=== PATIENT | female | born 1940 | race Caucasian/White ===

== ENCOUNTER 2016-12-13 12:15 | Inpatient (IN) | payer OTHER, BC ==
[~2016-12-13] VITALS: Ht 154.9 cm; Wt 54.8 kg
[~2016-12-13 12:15] MED LIST: ACTOS45 MG PO; AMLODIPINE BESY10 MG PO; APRESOLINE25 MG PO; ATENOLOL50 MG PO; BAYER CHILDREN'81 MG PO; CALTRATE 600 +1 EAC1 PO; CALTRATE 600600 MG PO; CATAPRES0.1 MG PO; CHILD ASPIRIN81 M1 PO; CLONIDINE HCL0.3 MG PO; COLACE100 MG PO; DEXAMETHASONE2 MG PO; DEXAMETHASONE4 MG PO; DOK PLUS TABLE1 EACH PO; FEOSOL325 MG PO; FOLBIC RF TABL1 EACH PO; GLUCOPHAGE XR,500 MG PO; GLUCOPHAGE XR500 MG PO; HYDRALAZINE HCL25 MG PO; HYDROCHLOROTHIA25 MG PO; IRON18 MG PO; IRON325 M1 PO; IRON325 MG PO; LABETALOL H5 MG/1 M1 IV; LEVEMIR FL100 UNIT/1 SC; LEVOFLOXACIN500 MG PO; LEXAPRO10 MG PO; LISINOPRIL20 MG PO; METFORMIN HCL500 M1 PO; MICROZIDE12.5 M1 PO; NASONEX17 GM NS; NORVASC5 MG PO; NOVOLOG PE100 UNITS/ SC; PANTOPRAZOLE SO40 MG PO; PHENERGAN-CODE120 ML PO; POTASSIUM CHLO20 ME1 PO; PROCARDIA XL60 MG PO; SINGULAIR10 MG PO; SYNTHROID112 MCG PO; SYNTHROID75 MCG PO; TENORMIN100 MG PO; VITAMIN B-6100 MG PO; VITAMIN B-6200 MG PO; VITAMIN D10000 UNIT PO; VITAMIN D31000 UNI2 PO; ZESTRIL20 MG PO; ZETIA10 MG PO; ZOFRAN4 MG/2 ML IV; ZOLOFT50 MG PO
[2016-12-13 12:34] LABS: CREATININE 0.9 mg/dL (0.6-1.3); POTASSIUM 3.1 mEq/L (3.7-5.4)
[2016-12-13 12:41] LABS: BASOPHIL COUNT 0.1 K/uL (0-0.1); EOSINOPHIL (%) 0.7 % (0-5); EOSINOPHIL COUNT 0.1 K/uL (0-0.3); HEMATOCRIT 42.4 % (36.0-46.0); IMMATURE GRANULOCYTE (%) 2.4 % (0.0-0.7); IMMATURE GRANULOCYTE COUNT 0.5 K/uL; INSTRUMENT ABS NEUTROPHIL CT 13.2 K/uL; LYMPHOCYTE COUNT 3.9 K/uL (1.0-2.8); MCH 27.8 PG (29.0-34.0); MCHC 32.3 G/DL (30.0-36.0); MEAN PLAT.VOLUME 10.1 uM^3 (9.5-12.4); MONOCYTE (%) 5.1 % (3-12); NEUTROPHIL (%) 70.4 % (45-76); NEUTROPHIL COUNT 13.2 K/uL (1.8-6.4); PLATELET COUNT 425 K/uL (156-360); RBC DIS.WIDTH-CV 13.2 % (11.8-14.6); RBC DIS.WIDTH-SD 41.6 % (39-53); RED BLOOD COUNT 4.93 M/uL (3.80-5.20); WHITE BLOOD COUNT 18.8 K/uL (4.1-10.2)
[2016-12-13 12:50] LABS: INTER. NORMALIZED RATIO 1.1; PROTHROMBIN TIME 11.4 (9.2-11.2); PTT 25.7 (25-32)
[2016-12-13 12:51] LABS: AMYLASE 40 IU/L (1-118); CHLORIDE 100 mEq/L (99-109); POTASSIUM 3.2 mEq/L (3.7-5.4); SODIUM 139 mEq/L (136-147)
[2016-12-13 12:52] LABS: GLUCOSE 299 mg/dL (70-99)
[2016-12-13 12:54] LABS: ANION GAP 20 MEQ/L (2-14)
[2016-12-13 12:55] LABS: SERUM ETHYL ALCOHOL < 10 mg/dL
[2016-12-13 12:56] LABS: GFR ESTIMATE (CALCULATED) 46 mL/min/
[2016-12-13 12:57] LABS: UREA NITROGEN (BUN) 15 mg/dL (9-23)
[2016-12-13 12:59] LABS: LIPASE 19 U/L (1.0-51.0)
[2016-12-13 13:00] LABS: TROP-I INTERPRETATION NEGATIVE; TROPONIN-I 0.04 ng/mL (0.0-0.30)
[2016-12-13 13:25] LABS: ADD MIUA? YES; BILIRUBIN NEGATIVE; BLOOD NEGATIVE; COLOR YELLOW ((YELLOW)); GLUCOSE (STRIP) >=500; KETONES 5; LEUKOCYTES NEGATIVE; NITRITE NEGATIVE; PROTEIN (STRIP) >=500; SPECIFIC GRAVITY 1.012 (1.000-1.030); UROBILINOGEN 0.2 MG/DL (0.2-1.0)
[2016-12-13 13:31] LABS: BACTERIA NONE SEEN /HPF; EPITHELIAL CELLS NONE SEEN /HPF; MUCUS NONE SEEN /LPF; RED BLOOD CELLS 0-5 /HPF (0-5); UCUL ADDED? NO; WHITE BLOOD CELLS 0-5 /HPF (0-5)
[2016-12-13 13:34] LABS: THC CANNABINOIDS NEGATIVE (50 ng/mL)
[2016-12-13 13:35] LABS: AMPHETAMINE NEGATIVE (500 ng/mL); BARBITURATES NEGATIVE (200 ng/mL); BENZODIAZEPINES NEGATIVE (150 ng/mL); COCAINE NEGATIVE (150 ng/mL); INTERNAL CONTROLS VALID? YES; METHADONE NEGATIVE (200 ng/mL); METHAMPHETAMINE NEGATIVE (500 ng/mL); OPIATES (MORPHINE) NEGATIVE (100 ng/mL); OXYCODONE NEGATIVE (100 ng/mL); PHENCYCLIDINE NEGATIVE (25 ng/mL); PROPOXYPHENE NEGATIVE (300 ng/mL); TRICYCLIC ANTIDEPRESSANTS NEGATIVE (300 ng/mL)
[2016-12-13 15:30] VITALS: BP 157/73
[2016-12-13 15:45] VITALS: BP 152/76
[2016-12-13 16:00] VITALS: BP 162/85
[2016-12-13 16:15] VITALS: BP 171/96
[2016-12-13 16:44] LABS: METH RESISTANT S AUREUS PCR NEGATIVE (NEGATIVE)
[2016-12-13 16:49] LABS: PROBE CHECK PASS; SPECIMEN PROCESSING CONTROL PASS
[2016-12-13 18:23] LABS: POINT-OF-CARE METER ID UU13113731
[2016-12-13] MEDS ORDERED: LEVO-T100 MCG PO (18:50)
[2016-12-13] MEDS ORDERED: PROCARDIA XL60 MG PO (18:51)
[2016-12-13] MEDS ORDERED: APRESOLINE10 MG PO (18:51)
[2016-12-13] MEDS ORDERED: KLOR-CON M2020 MEQ PO (18:51)
[2016-12-13] MEDS ORDERED: METFORMIN HCL500 M1 PO (18:52)
[2016-12-13] MEDS ORDERED: IRON325 MG PO (18:52)
[2016-12-13] MEDS ORDERED: BUSPAR5 MG PO (18:52)
[2016-12-13] MEDS ORDERED: FOLBIC RF TABL1 EACH PO (18:53)
[2016-12-13] MEDS ORDERED: CATAPRES0.3 MG PO (18:53)
[2016-12-13] MEDS ORDERED: LEXAPRO20 MG PO (18:53)
[2016-12-13] MEDS ORDERED: ZETIA10 MG PO (18:53)
[2016-12-13 19:00] VITALS: BP 129/68
[2016-12-13 20:00] VITALS: BP 133/78
[2016-12-13 20:06] LABS: TROP-I INTERPRETATION NEGATIVE; TROPONIN-I 0.09 ng/mL (0.0-0.30)
[2016-12-14 00:22] LABS: POINT-OF-CARE METER ID UU13113731
[2016-12-14 03:00] VITALS: BP 203/104
[2016-12-14 04:50] LABS: HEMATOCRIT 37.5 % (36.0-46.0); MCHC 33.3 G/DL (30.0-36.0); MCV 84.1 FL (83-99); MEAN PLAT.VOLUME 9.6 uM^3 (9.5-12.4); PLATELET COUNT 349 K/uL (156-360); RBC DIS.WIDTH-CV 13.7 % (11.8-14.6); RBC DIS.WIDTH-SD 42.5 % (39-53); RED BLOOD COUNT 4.46 M/uL (3.80-5.20); WHITE BLOOD COUNT 21.5 K/uL (4.1-10.2)
[2016-12-14 04:59] LABS: CHLORIDE 103 mEq/L (99-109); POTASSIUM 3.4 mEq/L (3.7-5.4); SODIUM 139 mEq/L (136-147)
[2016-12-14 05:02] LABS: GLUCOSE 241 mg/dL (70-99)
[2016-12-14 05:03] LABS: ANION GAP 14 MEQ/L (2-14)
[2016-12-14 05:04] LABS: TOTAL BILIRUBIN 0.3 mg/dL (0.0-1.0)
[2016-12-14 05:05] LABS: ALKALINE PHOSPHATASE 73 IU/L (3-129); GFR ESTIMATE (CALCULATED) 51 mL/min/
[2016-12-14 05:06] LABS: UREA NITROGEN (BUN) 19 mg/dL (9-23)
[2016-12-14 08:00] VITALS: BP 161/83
[2016-12-14 09:32] LABS: TROP-I INTERPRETATION NEGATIVE; TROPONIN-I 0.09 ng/mL (0.0-0.30)
[2016-12-14 12:00] VITALS: BP 166/82
[2016-12-14 12:30] LABS: POINT-OF-CARE METER ID UU13113731
[2016-12-14 14:00] VITALS: BP 182/89
[2016-12-14 15:00] VITALS: BP 182/89
[2016-12-14 16:30] LABS: BASE EXCESS 0.7 mEq/L (-3 to +3); BICARBONATE 25.4 mEq/L (22-26); COMMENTS - BLOOD GASES C+; DEVICE 840; FI02 30 %; METHEMOGLOBIN 1.8 % (0-1.5); MODE SPON; PCO2 40 mm Hg (35-45); PO2 102 mm Hg (80-100); SITE ALINE; TOTAL RESP RATE 20 resp/min; pH 7.41 (7.35-7.45)
[2016-12-14 17:00] VITALS: BP 181/88
[2016-12-14 18:27] LABS: POINT-OF-CARE METER ID UU13113731
[2016-12-14 18:54] LABS: EOSINOPHIL (%) 0 % (0-5); HEMATOCRIT 34.2 % (36.0-46.0); IMMATURE GRANULOCYTE (%) 0.7 % (0.0-0.7); IMMATURE GRANULOCYTE COUNT 0.2 K/uL; INSTRUMENT ABS NEUTROPHIL CT 19.7 K/uL; LYMPHOCYTE COUNT 1.1 K/uL (1.0-2.8); MCH 27.7 PG (29.0-34.0); MCHC 32.7 G/DL (30.0-36.0); MCV 84.7 FL (83-99); MEAN PLAT.VOLUME 9.8 uM^3 (9.5-12.4); MONOCYTE (%) 7.6 % (3-12); MONOCYTE COUNT 1.7 K/uL (0-0.8); NEUTROPHIL (%) 86.8 % (45-76); NEUTROPHIL COUNT 19.7 K/uL (1.8-6.4); PLATELET COUNT 351 K/uL (156-360); RBC DIS.WIDTH-SD 43.8 % (39-53); RED BLOOD COUNT 4.04 M/uL (3.80-5.20); WHITE BLOOD COUNT 22.7 K/uL (4.1-10.2)
[2016-12-15] VITALS (15 sets, daily range): BP systolic 135–189; BP diastolic 51–79
[2016-12-15 05:41] LABS: POINT-OF-CARE METER ID UU13113731
[2016-12-15 06:36] LABS: EOSINOPHIL (%) 0.2 % (0-5); HEMATOCRIT 33.7 % (36.0-46.0); IMMATURE GRANULOCYTE (%) 0.6 % (0.0-0.7); IMMATURE GRANULOCYTE COUNT 0.1 K/uL; INSTRUMENT ABS NEUTROPHIL CT 14.1 K/uL; LYMPHOCYTE COUNT 1.8 K/uL (1.0-2.8); MCH 27.3 PG (29.0-34.0); MCV 85.3 FL (83-99); MONOCYTE (%) 8.6 % (3-12); MONOCYTE COUNT 1.5 K/uL (0-0.8); NEUTROPHIL (%) 80.1 % (45-76); NEUTROPHIL COUNT 14.1 K/uL (1.8-6.4); PLATELET COUNT 333 K/uL (156-360); RBC DIS.WIDTH-CV 13.9 % (11.8-14.6); RBC DIS.WIDTH-SD 43.6 % (39-53); RED BLOOD COUNT 3.95 M/uL (3.80-5.20); WHITE BLOOD COUNT 17.6 K/uL (4.1-10.2)
[2016-12-15 07:08] LABS: ANION GAP 11 MEQ/L (2-14); CHLORIDE 105 MEQ/L (99-109); GFR ESTIMATE (CALCULATED) > 59 mL/min/; GLUCOSE 174 mg/dL (70-99); MAGNESIUM 1.4 mg/dl (1.3-2.7); POTASSIUM 3.2 MEQ/L (3.7-5.4); SAMPLE HEMOLYSIS CHECK 0; SAMPLE ICTERIC CHECK 0; SAMPLE LIPEMIA CHECK 0; SODIUM 141 MEQ/L (136-147); UREA NITROGEN (BUN) 13 mg/dL (9-23)
[2016-12-15 11:57] LABS: POINT-OF-CARE METER ID UU13113731
[2016-12-15 17:30] LABS: POINT-OF-CARE METER ID UU13113731
[2016-12-15 21:53] LABS: POINT-OF-CARE METER ID UU14174217
[2016-12-16] VITALS: BP 134/65
[2016-12-16 06:19] LABS: BASOPHIL COUNT 0.1 K/uL (0-0.1); EOSINOPHIL (%) 1.6 % (0-5); EOSINOPHIL COUNT 0.2 K/uL (0-0.3); HEMATOCRIT 31.7 % (36.0-46.0); IMMATURE GRANULOCYTE (%) 0.7 % (0.0-0.7); IMMATURE GRANULOCYTE COUNT 0.1 K/uL; INSTRUMENT ABS NEUTROPHIL CT 9.5 K/uL; LYMPHOCYTE COUNT 2.5 K/uL (1.0-2.8); MCH 27.5 PG (29.0-34.0); MCHC 32.2 G/DL (30.0-36.0); MCV 85.4 FL (83-99); MEAN PLAT.VOLUME 9.8 uM^3 (9.5-12.4); MONOCYTE (%) 7.7 % (3-12); NEUTROPHIL COUNT 9.5 K/uL (1.8-6.4); PLATELET COUNT 317 K/uL (156-360); RBC DIS.WIDTH-CV 13.5 % (11.8-14.6); RBC DIS.WIDTH-SD 42.4 % (39-53); RED BLOOD COUNT 3.71 M/uL (3.80-5.20); WHITE BLOOD COUNT 13.4 K/uL (4.1-10.2)
[2016-12-16 07:28] LABS: ANION GAP 9 MEQ/L (2-14); CHLORIDE 105 MEQ/L (99-109); GFR ESTIMATE (CALCULATED) > 59 mL/min/; GLUCOSE 176 mg/dL (70-99); POTASSIUM 3.4 MEQ/L (3.7-5.4); SAMPLE HEMOLYSIS CHECK 0; SAMPLE ICTERIC CHECK 0; SAMPLE LIPEMIA CHECK 0; SODIUM 140 MEQ/L (136-147); UREA NITROGEN (BUN) 16 mg/dL (9-23)
[2016-12-16 07:40] LABS: MAGNESIUM 1.8 mg/dl (1.3-2.7)
[2016-12-16 07:41] VITALS: BP 118/52
[2016-12-16 09:45] VITALS: BP 88/54
[2016-12-16 11:15] VITALS: BP 102/57
[2016-12-16 11:49] LABS: POINT-OF-CARE METER ID UU13113698; POINT-OF-CARE USER ID NUTSLF44
[2016-12-16 16:25] LABS: POINT-OF-CARE METER ID UU13113698; POINT-OF-CARE USER ID NUTSLF44
[2016-12-16 16:30] VITALS: BP 118/56
[2016-12-16 19:22] VITALS: BP 147/70
[2016-12-17] VITALS (10 sets, daily range): BP systolic 124–213; BP diastolic 58–101
[2016-12-17 07:45] LABS: BASOPHIL COUNT 0.1 K/uL (0-0.1); EOSINOPHIL (%) 3.5 % (0-5); EOSINOPHIL COUNT 0.4 K/uL (0-0.3); HEMATOCRIT 30.8 % (36.0-46.0); IMMATURE GRANULOCYTE (%) 0.5 % (0.0-0.7); IMMATURE GRANULOCYTE COUNT 0.1 K/uL; INSTRUMENT ABS NEUTROPHIL CT 6.8 K/uL; LYMPHOCYTE COUNT 2.5 K/uL (1.0-2.8); MCH 27.9 PG (29.0-34.0); MCHC 32.8 G/DL (30.0-36.0); MCV 85.1 FL (83-99); MEAN PLAT.VOLUME 9.9 uM^3 (9.5-12.4); NEUTROPHIL (%) 63.5 % (45-76); NEUTROPHIL COUNT 6.8 K/uL (1.8-6.4); PLATELET COUNT 291 K/uL (156-360); RBC DIS.WIDTH-CV 13.2 % (11.8-14.6); RBC DIS.WIDTH-SD 41.5 % (39-53); RED BLOOD COUNT 3.62 M/uL (3.80-5.20); WHITE BLOOD COUNT 10.7 K/uL (4.1-10.2)
[2016-12-17 08:10] LABS: POINT-OF-CARE METER ID UU13113698
[2016-12-17 08:24] LABS: ANION GAP 10 MEQ/L (2-14); CHLORIDE 104 MEQ/L (99-109); GFR ESTIMATE (CALCULATED) > 59 mL/min/; GLUCOSE 150 mg/dL (70-99); POTASSIUM 3.5 MEQ/L (3.7-5.4); SAMPLE HEMOLYSIS CHECK 0; SAMPLE ICTERIC CHECK 0; SAMPLE LIPEMIA CHECK 0; SODIUM 139 MEQ/L (136-147); UREA NITROGEN (BUN) 14 mg/dL (9-23)
[2016-12-17 08:25] LABS: MAGNESIUM 1.5 mg/dl (1.3-2.7)
[2016-12-17 21:29] LABS: POINT-OF-CARE METER ID UU14174216
[2016-12-18] VITALS (8 sets, daily range): BP systolic 128–190; BP diastolic 63–98
[2016-12-18 07:08] LABS: BASOPHIL COUNT 0.1 K/uL (0-0.1); EOSINOPHIL (%) 4.4 % (0-5); EOSINOPHIL COUNT 0.5 K/uL (0-0.3); HEMATOCRIT 33.4 % (36.0-46.0); IMMATURE GRANULOCYTE (%) 1.5 % (0.0-0.7); IMMATURE GRANULOCYTE COUNT 0.2 K/uL; INSTRUMENT ABS NEUTROPHIL CT 6.6 K/uL; LYMPHOCYTE COUNT 3.1 K/uL (1.0-2.8); MCH 27.5 PG (29.0-34.0); MCHC 32.9 G/DL (30.0-36.0); MCV 83.5 FL (83-99); MEAN PLAT.VOLUME 9.6 uM^3 (9.5-12.4); MONOCYTE (%) 9.1 % (3-12); NEUTROPHIL (%) 57.4 % (45-76); NEUTROPHIL COUNT 6.6 K/uL (1.8-6.4); PLATELET COUNT 344 K/uL (156-360); RBC DIS.WIDTH-CV 13.2 % (11.8-14.6); RBC DIS.WIDTH-SD 40.1 % (39-53); WHITE BLOOD COUNT 11.4 K/uL (4.1-10.2)
[2016-12-18 07:35] LABS: ANION GAP 10 MEQ/L (2-14); CHLORIDE 102 MEQ/L (99-109); GFR ESTIMATE (CALCULATED) > 59 mL/min/; GLUCOSE 149 mg/dL (70-99); MAGNESIUM 1.4 mg/dl (1.3-2.7); POTASSIUM 3.3 MEQ/L (3.7-5.4); SAMPLE HEMOLYSIS CHECK 0; SAMPLE ICTERIC CHECK 0; SAMPLE LIPEMIA CHECK 0; SODIUM 138 MEQ/L (136-147); UREA NITROGEN (BUN) 16 mg/dL (9-23)
[2016-12-18 07:42] LABS: POINT-OF-CARE METER ID UU13113698
[2016-12-18 11:17] LABS: POINT-OF-CARE METER ID UU13113698
[2016-12-18 15:58] LABS: POINT-OF-CARE METER ID UU13113698
[2016-12-18 21:36] LABS: POINT-OF-CARE METER ID UU13113698
[2016-12-19 02:00] VITALS: BP 179/87
[2016-12-19 03:36] VITALS: BP 179/87
[2016-12-19 04:07] VITALS: BP 133/63
[2016-12-19 07:39] LABS: BASOPHIL COUNT 0.1 K/uL (0-0.1); EOSINOPHIL COUNT 0.7 K/uL (0-0.3); IMMATURE GRANULOCYTE (%) 2.1 % (0.0-0.7); IMMATURE GRANULOCYTE COUNT 0.3 K/uL; INSTRUMENT ABS NEUTROPHIL CT 8.5 K/uL; LYMPHOCYTE COUNT 3.7 K/uL (1.0-2.8); MCH 27.6 PG (29.0-34.0); MCHC 32.9 G/DL (30.0-36.0); MCV 83.7 FL (83-99); MEAN PLAT.VOLUME 9.7 uM^3 (9.5-12.4); MONOCYTE (%) 8.8 % (3-12); MONOCYTE COUNT 1.3 K/uL (0-0.8); NEUTROPHIL (%) 58.2 % (45-76); NEUTROPHIL COUNT 8.5 K/uL (1.8-6.4); PLATELET COUNT 371 K/uL (156-360); RBC DIS.WIDTH-CV 13.2 % (11.8-14.6); RBC DIS.WIDTH-SD 39.9 % (39-53); RED BLOOD COUNT 4.06 M/uL (3.80-5.20); WHITE BLOOD COUNT 14.5 K/uL (4.1-10.2)
[2016-12-19 07:59] LABS: ANION GAP 9 MEQ/L (2-14); CHLORIDE 100 MEQ/L (99-109); GFR ESTIMATE (CALCULATED) 51 mL/min/; GLUCOSE 154 mg/dL (70-99); MAGNESIUM 1.4 mg/dl (1.3-2.7); POTASSIUM 3.7 MEQ/L (3.7-5.4); SAMPLE HEMOLYSIS CHECK 0; SAMPLE ICTERIC CHECK 0; SAMPLE LIPEMIA CHECK 0; SODIUM 138 MEQ/L (136-147); UREA NITROGEN (BUN) 20 mg/dL (9-23)
[2016-12-19 08:00] VITALS: BP 191/88
[2016-12-19 08:09] LABS: POINT-OF-CARE USER ID ENVKC36
[2016-12-19] MEDS ORDERED: LOPRESSOR25 MG PO (11:07)
[2016-12-19] MEDS ORDERED: ATORVASTATIN CA80 MG PO (11:07)
[2016-12-19] MEDS ORDERED: ASPIRIN81 M2 PO (11:08)
[2016-12-19 11:40] LABS: POINT-OF-CARE METER ID UU13113781; POINT-OF-CARE USER ID ENVKC36
[2016-12-19 13:05] VITALS: BP 172/79
[2016-12-19] MEDS ORDERED: PEPCID20 MG PO (15:29)
== END 2016-12-19 13:42 | DRG 304 ==
LOC: EME → EDBD 12:15 → EME 12:15 → EDOF 13:07 → 4WEST 13:07 → 4EAST 12-16 09:43
PROVIDERS: Emergency Medicine; Hospitalist; Internal Medicine Critical Care Medicine; Internal Medicine Nephrology; Student in an Organized Health Care Education/Training Program
DX: I16.1 Hypertensive emergency (principal); J96.01 Acute respiratory failure with hypoxia; E87.6 Hypokalemia; R56.9 Unspecified convulsions; I12.9 Hypertensive chronic kidney disease with stage 1 through stage 4 chronic kidney disease, or unspecified chronic kidney disease; N18.9 Chronic kidney disease, unspecified; G93.89 Other specified disorders of brain; I48.92 Unspecified atrial flutter; I44.39 Other atrioventricular block; D72.829 Elevated white blood cell count, unspecified; E11.9 Type 2 diabetes mellitus without complications; E78.5 Hyperlipidemia, unspecified; E03.9 Hypothyroidism, unspecified; F32.9 Major depressive disorder, single episode, unspecified; Z86.73 Personal history of transient ischemic attack (TIA), and cerebral infarction without residual deficits
CPT/HCPCS: 36600; 70450; 70553; 71010; 80047; 80048; 80053; 81003; 82150; 82803; 82948; 83605; 83690; 83735; 84100; 84484; 85025; 85027; 85610; 85730; 86850; 86900; 86901; 87040; 87070; 87081; 87205; 87641; 92610 GN; 93005; 94002; 94003; 94799; 96125 GN; 97530 GO; 97530 GP; 99281; 99285; G0480; J1644; J1815; J2060; J2250; J2704; J3010; J3475; J3480; J7030; J7040; J7050; S0028

== ENCOUNTER 2016-12-19 13:48 | Inpatient (IN) | payer OTHER, BC ==
[~2016-12-19] VITALS: Ht 157.5 cm; Wt 53.2 kg
[~2016-12-19 13:48] MED LIST changes: +APRESOLINE10 MG PO; +ASPIRIN81 M2 PO; +ATORVASTATIN CA80 MG PO; +BUSPAR5 MG PO; +CATAPRES0.3 MG PO; +KLOR-CON M2020 MEQ PO; +LEVO-T100 MCG PO; +LEXAPRO20 MG PO; +LOPRESSOR25 MG PO
[2016-12-19 14:03] VITALS: BP 136/67
[2016-12-19] MEDS ORDERED: PEPCID20 MG PO (15:29)
[2016-12-19 16:33] LABS: POINT-OF-CARE METER ID UU13113720
[2016-12-20 00:15] VITALS: BP 162/80
[2016-12-20 05:30] VITALS: BP 156/78
[2016-12-20 06:57] LABS: POINT-OF-CARE METER ID UU14174215; POINT-OF-CARE USER ID ENVGAF
[2016-12-20 11:20] VITALS: BP 115/58
[2016-12-20 11:23] VITALS: BP 104/56
[2016-12-20 11:33] VITALS: BP 109/73
[2016-12-20 16:42] LABS: POINT-OF-CARE METER ID UU13113720
[2016-12-20 17:31] VITALS: BP 107/56
[2016-12-21 06:08] VITALS: BP 171/79
[2016-12-21 07:42] LABS: POINT-OF-CARE METER ID UU14174215
[2016-12-21 15:35] VITALS: BP 129/98
[2016-12-21 16:23] LABS: POINT-OF-CARE METER ID UU13113720
[2016-12-22 05:38] VITALS: BP 176/84
[2016-12-22 07:21] LABS: POINT-OF-CARE METER ID UU13113720
[2016-12-22 15:00] VITALS: BP 129/63
[2016-12-22 16:22] LABS: POINT-OF-CARE METER ID UU14174215
[2016-12-23 05:27] LABS: BASOPHIL COUNT 0.1 K/uL (0-0.1); EOSINOPHIL (%) 5.3 % (0-5); EOSINOPHIL COUNT 0.7 K/uL (0-0.3); IMMATURE GRANULOCYTE (%) 2.4 % (0.0-0.7); IMMATURE GRANULOCYTE COUNT 0.3 K/uL; INSTRUMENT ABS NEUTROPHIL CT 7.4 K/uL; LYMPHOCYTE COUNT 3.3 K/uL (1.0-2.8); MCH 27.8 PG (29.0-34.0); MCHC 32.8 G/DL (30.0-36.0); MCV 84.7 FL (83-99); MEAN PLAT.VOLUME 9.8 uM^3 (9.5-12.4); MONOCYTE (%) 9.6 % (3-12); MONOCYTE COUNT 1.2 K/uL (0-0.8); NEUTROPHIL COUNT 7.4 K/uL (1.8-6.4); PLATELET COUNT 372 K/uL (156-360); RBC DIS.WIDTH-CV 13.3 % (11.8-14.6); RBC DIS.WIDTH-SD 41.2 % (39-53); RED BLOOD COUNT 3.78 M/uL (3.80-5.20); WHITE BLOOD COUNT 12.9 K/uL (4.1-10.2)
[2016-12-23 05:40] VITALS: BP 139/64
[2016-12-23 06:00] LABS: ALKALINE PHOSPHATASE 57 IU/L (3-129); ANION GAP 9 MEQ/L (2-14); CHLORIDE 105 MEQ/L (99-109); GFR ESTIMATE (CALCULATED) 57 mL/min/; GLUCOSE 187 mg/dL (70-99); POTASSIUM 3.9 MEQ/L (3.7-5.4); SAMPLE HEMOLYSIS CHECK 0; SAMPLE ICTERIC CHECK 0; SAMPLE LIPEMIA CHECK 0; SODIUM 137 MEQ/L (136-147); TOTAL BILIRUBIN 0.3 MG/DL (0.0-1.0); UREA NITROGEN (BUN) 29 mg/dL (9-23)
[2016-12-23 06:59] LABS: POINT-OF-CARE METER ID UU13113720; POINT-OF-CARE USER ID ENVGAF
[2016-12-23 15:00] VITALS: BP 113/59
[2016-12-23 16:39] LABS: POINT-OF-CARE METER ID UU14174215
[2016-12-23 20:34] VITALS: BP 199/61
[2016-12-23 23:04] VITALS: BP 158/78
[2016-12-24 05:49] VITALS: BP 149/67
[2016-12-24 07:23] LABS: POINT-OF-CARE METER ID UU13113720
[2016-12-24 07:47] VITALS: BP 132/69
[2016-12-24 16:14] LABS: POINT-OF-CARE METER ID UU14174215
[2016-12-25 05:42] VITALS: BP 116/55
[2016-12-25 07:01] LABS: POINT-OF-CARE METER ID UU14174215; POINT-OF-CARE USER ID ENVGAF
[2016-12-25 07:39] VITALS: BP 158/78
[2016-12-25] MEDS ORDERED: IRON325 MG PO (11:00)
[2016-12-25] MEDS ORDERED: METFORMIN HCL500 MG PO (11:00)
[2016-12-25] MEDS ORDERED: CLONIDINE HCL0.1 MG PO (11:00)
[2016-12-25] MEDS ORDERED: PROCARDIA XL60 MG PO (11:00)
[2016-12-25] MEDS ORDERED: APRESOLINE10 MG PO (11:00)
[2016-12-25] MEDS ORDERED: ASPIR-LOW81 MG PO (11:00)
[2016-12-25] MEDS ORDERED: KLOR-CON M2020 MEQ PO (11:00)
[2016-12-25] MEDS ORDERED: LOPRESSOR25 MG PO (11:00)
== END 2016-12-25 16:14 | disposition home health service (06) | DRG 93 ==
LOC: 3WEST 13:48
PROVIDERS: Psychiatry & Neurology Neurology
PROC: F07M0ZZ Range of Motion and Joint Mobility Treatment of Musculoskeletal System - Whole Body (ICD-10-PCS; principal; 2016-12-19)
DX: R26.9 Unspecified abnormalities of gait and mobility (principal); E03.9 Hypothyroidism, unspecified; N18.9 Chronic kidney disease, unspecified; R41.3 Other amnesia; D64.9 Anemia, unspecified; E78.5 Hyperlipidemia, unspecified; Z87.820 Personal history of traumatic brain injury; I12.9 Hypertensive chronic kidney disease with stage 1 through stage 4 chronic kidney disease, or unspecified chronic kidney disease; E11.22 Type 2 diabetes mellitus with diabetic chronic kidney disease
CPT/HCPCS: 80053; 82306; 82607; 82746; 82948; 85025; 92523 GN; 95819; 97530 GP; 97532 GN; J1650; J1815